=== PATIENT | male | born 1990 | race African-American/Black ===

== ENCOUNTER 2016-12-15 15:35 | Emergency (ER) | payer OTHER ==
--- NOTE | 2016-12-15 15:45 | PDOC ---
Rapid Medical Evaluation Time Seen by Provider: 12/15/16 15:36 Medical Evaluation: 12/15/16 15:41 I have performed a brief in-person evaluation of this patient. Mr. Wu is a 26 yo M who presents to the ER s/p slip and fall Pt states he slipped on ice, landed on his back and struck the back of his head No LOC No amnesia Complains of a headache currently (involving the back of his head), 04/09. Denies dizziness, denies vision change, denies nausea or vomiting Complains of lower back pain. No focal weakness or numbness. Has not taken any pain medications His family member did not want to mask his symptoms without knowing the cause Pertinent physical exam findings: Midline lumbar tenderness, no deformity, no bruising A&O x 3 Neurologically intact The patient will proceed to the ED for further evaluation.
[2016-12-15 15:46] VITALS: BP 111/69; PULSE 67; TEMP 98.1; BMI 33.0
[2016-12-15] MEDS ORDERED: ACETAMINOPHEN 500 MG TABLET (FP) PO ONE (17:34)
[2016-12-15] MEDS ORDERED: ACETAMINOPHEN 500 MG TABLET (FP) ONE (17:34)
--- NOTE | 2016-12-15 17:40 | PDOC ---
History of Present Illness - General Chief Complaint: Pain Stated Complaint: FALL/ HEADACHE, BACK PAIN, HEADACHE Time Seen by Provider: 12/15/16 15:36 History Source: Patient Exam Limitations: No Limitations - History of Present Illness Initial Comments: 12/15/16 17:42 My chief complaint: Headache, bilateral neck pain and lower back pain History of present illness: Patient is a 26-year-old male with no significant medical history here after slipping and falling on ice yesterday while in a parking lot backwards hitting the back of his head. Patient reports that he did not lose any consciousness felt slightly lightheaded for a few seconds was able to get up immediately a slight posterior headache that dissipated. Patient today reports having bilateral neck pain with movement of his neck left and right and mid lower back pain today that is worse with bending over. Patient denies any radiation of pain down arms or legs or any numbness of legs or arms or any saddle anesthesia or any incontinency. Patient denies any nausea, vomiting, change in vision, any hemotympanum, or change in level of alertness, dizziness. Patient today reports that pain is top of head and is currently a 7 out of 10 throbbing in lower back pain is a 7 out of 10. Patient also has bilateral neck pain that is currently a 5 out of 10. Patient did not take anything for pain. Patient is with his sister who told not to take anything for pain will give patient acetaminophen here and reevaluate. 12/15/16 17:45 Occurred: reports: yesterday Severity: reports: moderate Pain Location: reports: back (mid lower back with bending ), head (top of head presently ), neck (b/l ) Method of Injury: Yes: fall Modifying Factors: improves with: immobilization Loss of Consciousness: no loss of consciousness Associated Symptoms (Fall): headache (top of head presently ), lightheadedness ( for few seconds after fall yesterday ), neck pain (b/l ) Past History - Past Medical History Allergies/Adverse Reactions: Allergies Allergy/AdvReac Type Severity Reaction Status Date / Time No Known Allergies Allergy Verified 12/15/16 15:46 Home Medications: Ambulatory Orders NK [No Known Home Medication] 12/15/16 - Psycho/Social/Smoking Cessation Hx Anxiety: No Suicidal Ideation: No Smoking History: Current every day smoker Have you smoked in the past 12 months: Yes Number of Cigarettes Smoked Daily: 10 Information on smoking cessation initiated: No Hx Alcohol Use: No Drug/Substance Use Hx: No Substance Use Type: None Review of Systems - Review of Systems Able to Perform ROS?: Yes Constitutional: No: Symptoms Reported HEENTM: No: Symptoms Reported Respiratory: No: Symptoms reported Cardiac (ROS): Yes: Lightheadedness (for few seconds after fall yesterday ) ABD/GI: No: Symptoms Reported : No: Symptoms Reported Musculoskeletal: Yes: Back Pain (mid lower back with bending ), Neck Pain (b/l neck ) Integumentary: No: Symptoms Reported Neurological: Yes: Headache (top of head today, yesterday posterior headache slight ) *Physical Exam - Vital Signs Last Vital Signs Temp Pulse Resp BP Pulse Ox 98.1 F 67 18 111/69 98 12/15/16 15:42 12/15/16 15:42 12/15/16 15:42 12/15/16 15:42 12/15/16 15:42 - Physical Exam General Appearance: Yes: Appropriately Dressed HEENT: positive: EOMI, BALA, Normal ENT Inspection Neck: positive: Tender lateral (b/l ). negative: Tender midline Respiratory/Chest: positive: Lungs Clear, Normal Breath Sounds. negative: Chest Tender, Respiratory Distress Cardiovascular: positive: Regular Rhythm, Regular Rate, S1, S2 Musculoskeletal: positive: Normal Inspection, Decreased Range of Motion (from waist ), Vertebral Tenderness (mid lower lumbar ), Other. 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 negative: Numbness, Sensory Deficit (legs and arms b/l ) Deep Tendon Reflexes: Knee (L): 4+, Knee (R): 4+ Medical Decision Making - Medical Decision Making 12/15/16 17:45 Patient is a 26-year-old male with no significant medical history here after slipping and falling on ice yesterday while in a parking lot backwards hitting the back of his head. Patient reports that he did not lose any consciousness felt slightly lightheaded for a few seconds was able to get up immediately a slight posterior headache that dissipated. Patient today reports having bilateral neck pain with movement of his neck left and right and mid lower back pain today that is worse with bending over. Patient denies any radiation of pain down arms or legs or any numbness of legs or arms or any saddle anesthesia or any incontinency. Patient denies any nausea, vomiting, change in vision, any hemotympanum, or change in level of alertness, dizziness. Patient today reports that pain is top of head and is currently a 7 out of 10 throbbing in lower back pain is a 7 out of 10. Patient also has bilateral neck pain that is currently a 5 out of 10. Patient did not take anything for pain. Patient is with his sister who told not to take anything for pain will give patient acetaminophen here and reevaluate. Fall Headache presently Bilateral neck pain whiplash injury to neck Mid lower back pain lumbar will rule out any bony abnormality Plan: Will give acetaminophen 1000 mg and reassess X-ray lumbar sacral NO bony abnormality noted feeling better decreased pain head, neck, lower back will discharge to home 12/15/16 18:49 *DC/Admit/Observation/Transfer Diagnosis at time of Disposition: Whiplash injury to neck Qualifiers: Encounter type: initial encounter Qualified Code(s): S13.4XXA - Sprain of ligaments of cervical spine, initial encounter Fall Qualifiers: Encounter type: initial encounter Qualified Code(s): W19.XXXA - Unspecified fall, initial encounter Low back pain Qualifiers: Chronicity: acute Back pain laterality: midline Sciatica presence: without sciatica Qualified Code(s): M54.5 - Low back pain Head ache Qualifiers: Headache type: post-traumatic Headache chronicity pattern: acute headache Intractability: not intractable Qualified Code(s): G44.319 - Acute post- traumatic headache, not intractable - Discharge Dispostion Disposition: HOME Condition at time of disposition: Stable - Referrals Referrals: Manish Garcias MD [Staff Physician] - - Patient Instructions Additional Instructions: Follow up with primary care provider at [facility] at [phone] as soon as possible Return to emergency room if any dizziness, change in vision or level of alertness or nausea, vomiting, or severe headache, radiation of pain down arms or legs or in groin area or any new symptoms develop Take only Tylenol or acetaminophen as needed for pain avoid any ibuprofen or Aleve or Advil Follow up orthopedist of back pain continues or neck pain Patient voiced understanding of discharge instructions and all questions were answered
== END 2016-12-15 18:57 | disposition home or self-care (01) ==
LOC: JERFT 15:35
DX: S13.4XXA Sprain of ligaments of cervical spine, initial encounter (principal); M54.5 Low back pain; G44.319 Acute post-traumatic headache, not intractable; W00.0XXA Fall on same level due to ice and snow, initial encounter; Y93.89 Activity, other specified; Y92.413 State road as the place of occurrence of the external cause; Y99.8 Other external cause status
CPT/HCPCS: 72100-TC; 99281-25